=== PATIENT | male | born 1940 | race Caucasian/White ===

== ENCOUNTER 2023-11-12 05:10 | Inpatient (IN) | payer MEDICARE ==
[2023-11-12 06:06] LABS: #Basophils 0.04 10x3/uL (0.0-0.2); #Eosinphils Less than 0.03 10x3/uL (0.0-0.7); %Basophils 0.3 % (0.0-1.0); %Eosinophils 0.2 % (0.0-10.0); %Monocytes 11.1 % (0.0-10.0); %Neutrophils 80.7 % (42.0-75.0); Hematocrit 29.4 % (42.0-52.0); Hemoglobin 9.9 g/dL (14.0-18.0); Mean Corpuscular HGB CONC 33.7 g/dL (32.0-36.0); Mean Corpuscular Hemoglobin 31.5 pg (27.0-31.0); Mean Corpuscular Volume 93.6 fL (78.0-98.0); Mean Platelet Volume 10.9 fL (7.4-10.4); Platelet Count 149 10x3/uL (130-400); RBC Distribution Width 14.2 % (11.5-14.5); Red Blood Cell (RBC) Count 3.14 mill/uL (4.70-6.10)
[2023-11-12 06:12] LABS: ALT (SGPT) 13 U/L (8-55); AST (SGOT) 14 U/L (5-34); Albumin 2.9 g/dL (3.4-4.8); Alkaline Phosphatase 57 U/L (40-110); Anion Gap 11 mmol/L (10-20); BUN (Urea Nitrogen) 34 mg/dL (8.4-25.7); Bilirubin, Total 0.4 mg/dL (0.2-1.2); Calc. Creatinine Clearance 0 mL/min (70-130); Calcium 8.2 mg/dL (7.8-10.44); Carbon Dioxide 21 mmol/L (23-31); Chloride 112 mmol/L (98-107); Estimated GFR 87; Globulin 2.1 g/dL (2.4-3.5); Glucose 116 mg/dL (83-110); Potassium 4.2 mmol/L (3.5-5.1)
[2023-11-12 06:20] LABS: INR-International Normal Ratio 1.3; Prothrombin Time 15.9 sec (12.0-14.7)
[2023-11-12 06:21] LABS: PTT 24.2 sec (22.9-36.1)
[2023-11-12 06:24] LABS: Sodium 140 mmol/L (136-145)
[2023-11-12] MEDS ORDERED: Pantoprazole 40 MG VIAL ONE (06:34)
[2023-11-12] MEDS ORDERED: HYDROcodone/Acetaminophen 5/325 mg Tablet PO PRN (07:28)
[2023-11-12] MEDS ORDERED: Loperamide HCl 2 MG CAP PO PRN (07:28)
[2023-11-12] MEDS ORDERED: Pantoprazole 80 MG, Admixture Fee 1 EACH in Sodium Chloride 0.9% 100 ML IVPB SCH (08:00)
[2023-11-12 08:43] LABS: Lactic Acid 1.1 mmol/L (0.5-2.2)
[2023-11-12 08:47] LABS: INR-International Normal Ratio 1.4; Prothrombin Time 16.8 sec (12.0-14.7)
[2023-11-12] MEDS: Sodium Chloride 0.9% 1,000 ML IV SCH (09:43)
[2023-11-12] MEDS: Pantoprazole 80 MG, Admixture Fee 1 EACH in Sodium Chloride 0.9% 100 ML IVPB SCH (09:43)
[2023-11-12 10:07] VITALS: BMI 36.4
[2023-11-12 14:27] LABS: Hemoglobin 9.3 g/dL (14.0-18.0)
[2023-11-12] MEDS ORDERED: Iopamidol-370 76% 500 ML MDV (1 ML CHARGE) ONE (15:14)
[2023-11-12 15:58] LABS: Bacteria/HPF None Seen HPF (None Seen); Bilirubin Negative (Negative); Blood, Urine Negative (Negative); CAUTI Indications for Culture Fever or rigors; Clarity Clear (Clear); Glucose, Urine (Dipstick) Normal (Negative); Ketone, Urine Negative (Negative); Leukocyte Negative Leu/uL (Negative); Nitrite Negative (Negative); Protein, Urine (Dipstick) Negative (Neg-Trace); RBC/HPF 0-3 HPF (0-3); Specific Gravity, Urine 1.029 (1.002-1.036); Squamous Epithelial 0-3 HPF (0-3); Urobilinogen Normal mg/dL (Less than 2); WBC/HPF 0-3 HPF (0-3); pH, Urine 5.5 (5.0-9.0)
[2023-11-12 16:00] LABS: Urine Culture Reflex No No
[2023-11-12] MEDS: Atorvastatin Calcium 10 MG TAB PO SCH (21:14)
[2023-11-12 22:17] LABS: Hemoglobin 8.6 g/dL (14.0-18.0)
[2023-11-13 04:35] LABS: #Basophils 0.04 10x3/uL (0.0-0.2); %Basophils 0.4 % (0.0-1.0); %Eosinophils 2.3 % (0.0-10.0); %Lymphocytes 15.4 % (21.0-51.0); %Monocytes 11.4 % (0.0-10.0); %Neutrophils 69.5 % (42.0-75.0); Hematocrit 25.7 % (42.0-52.0); Hemoglobin 8.6 g/dL (14.0-18.0); Mean Corpuscular HGB CONC 33.5 g/dL (32.0-36.0); Mean Corpuscular Hemoglobin 32.1 pg (27.0-31.0); Mean Corpuscular Volume 95.9 fL (78.0-98.0); Mean Platelet Volume 10.3 fL (7.4-10.4); Platelet Count 134 10x3/uL (130-400); RBC Distribution Width 14.6 % (11.5-14.5); Red Blood Cell (RBC) Count 2.68 mill/uL (4.70-6.10)
[2023-11-13 04:52] LABS: Anion Gap 11 mmol/L (10-20); BUN (Urea Nitrogen) 23 mg/dL (8.4-25.7); Calc. Creatinine Clearance 133 mL/min (70-130); Calcium 7.8 mg/dL (7.8-10.44); Carbon Dioxide 21 mmol/L (23-31); Chloride 113 mmol/L (98-107); Estimated GFR 90; Glucose 108 mg/dL (83-110); Sodium 141 mmol/L (136-145)
[2023-11-13] MEDS: CO Q-10 CAPSULE 100 MG PO SCH (09:24)
[2023-11-13] MEDS ORDERED: Lidocaine 2% PF 5 ML VIAL ONE ×2 (11:04→12:19)
[2023-11-13] MEDS ORDERED: PROPOFOL 20 ML ONE ×2 (11:04→12:19)
[2023-11-13] MEDS ORDERED: fentaNYL 50 mcg/mL 1 mL Vial ONE (12:19)
[2023-11-13 14:57] LABS: Iron 78 ug/dL (65-175); Iron Binding Capacity, Total 233 mcg/dL (261-462)
[2023-11-13] MEDS: Pantoprazole 40 MG VIAL IVP SCH (21:45)
[2023-11-13 23:03] VITALS: TEMP 97.8
[2023-11-14 04:35] LABS: Actual Bicarbonate (HCO3v) 24.2 mEq/L (22-28); Base Excess -1.4 mEq/L (-2.0 to +3.0); Calcium, Ionized (venous) 1.13 mmol/L (1.16-1.32); Chloride (VBG) 107 mmol/L (98-106); Hematocrit-VBG 25 % (42.0-52.0); Hemoglobin (Hb) 8.5 g/dL (12.6-17.4); Potassium (VBG) 3.64 mmol/L (3.70-5.30); Sodium 131 mmol/L (133-146); pH (venous) 7.353 (7.32-7.43)
[2023-11-14 04:37] LABS: #Basophils 0.03 10x3/uL (0.0-0.2); %Basophils 0.3 % (0.0-1.0); %Eosinophils 2.5 % (0.0-10.0); %Lymphocytes 15.2 % (21.0-51.0); %Monocytes 10.9 % (0.0-10.0); %Neutrophils 70.4 % (42.0-75.0); Hematocrit 22.9 % (42.0-52.0); Hemoglobin 7.6 g/dL (14.0-18.0); Mean Corpuscular HGB CONC 33.2 g/dL (32.0-36.0); Mean Corpuscular Hemoglobin 32.1 pg (27.0-31.0); Mean Corpuscular Volume 96.6 fL (78.0-98.0); Mean Platelet Volume 10.2 fL (7.4-10.4); Platelet Count 130 10x3/uL (130-400); RBC Distribution Width 14.6 % (11.5-14.5); Red Blood Cell (RBC) Count 2.37 mill/uL (4.70-6.10)
[2023-11-14 11:44] VITALS: BP 141/67
== END 2023-11-14 14:25 | disposition home or self-care (01) | DRG 378 ==
LOC: ERS 05:10 → 2NO 09:03
PROVIDERS: ADMIT Hospitalist; ATTEND Internal Medicine
PROC: 0DB78ZX Excision of Stomach, Pylorus, Via Natural or Artificial Opening Endoscopic, Diagnostic (ICD-10-PCS; principal; 2023-11-13)
PROC: 0W3P8ZZ Control Bleeding in Gastrointestinal Tract, Via Natural or Artificial Opening Endoscopic (ICD-10-PCS; 2023-11-13)
DX: K26.4 Chronic or unspecified duodenal ulcer with hemorrhage (principal); D62 Acute posthemorrhagic anemia; I10 Essential (primary) hypertension; R55 Syncope and collapse; E78.5 Hyperlipidemia, unspecified; M19.90 Unspecified osteoarthritis, unspecified site; I48.0 Paroxysmal atrial fibrillation; Z79.899 Other long term (current) drug therapy; Z79.01 Long term (current) use of anticoagulants; Z87.891 Personal history of nicotine dependence; Z79.52 Long term (current) use of systemic steroids; Z79.1 Long term (current) use of non-steroidal anti-inflammatories (NSAID)
CPT/HCPCS: 36415; 70450; 71045; 74177; 76999; 80048; 80053; 81001; 82274; 82728; 82805; 83540; 83550; 83605; 85025; 85610; 85730; 86850; 86900; 86901; 88305; 88342; 93005; 94760; C9113; J2001; J2704; J3010; J3490; J7050; Q9967

== ENCOUNTER 2025-01-13 08:24 | Day surgery (SDC) | payer MEDICARE ==
[2025-01-12 10:52] VITALS: BMI 35.2
[2025-01-13] MEDS ORDERED: PROPOFOL 20 ML ONE (10:25)
[2025-01-13] MEDS ORDERED: fentaNYL PF 100 MCG/2 ML SYRINGE ONE (11:43)
[2025-01-13] MEDS ORDERED: Bupivacaine 0.25% HCL 30 ML VIAL ONE (11:47)
[2025-01-13] MEDS ORDERED: CEFAZOLIN 2 GM VIAL ONE (12:01)
[2025-01-13] MEDS ORDERED: Hydrocortisone Sod Succ/PF 100 mg/2 ml Vial ONE (12:19)
[2025-01-13] MEDS ORDERED: Rocuronium Bromide 10 MG/ML (10ML VIAL) ONE (12:33)
[2025-01-13] MEDS ORDERED: Lidocaine 1% PF 5 ML VIAL ONE (12:34)
[2025-01-13] MEDS ORDERED: Ondansetron PF 4 MG/2 ML Vial ONE (12:49)
[2025-01-13] MEDS ORDERED: SUGAMMADEX SODIUM 200 MG/2 ML VIAL ONE (12:50)
[2025-01-13] MEDS ORDERED: Ketorolac Tromethamine 30 MG (1 mL) VIAL ONE (13:38)
[2025-01-13] MEDS ORDERED: HYDROcodone/Acetaminophen 5/325 mg Tablet ONE (14:38)
[2025-01-13] MEDS ORDERED: Ondansetron PF 4 MG/2 ML Vial IVP PRN (14:45)
[2025-01-13] MEDS ORDERED: HYDROcodone/Acetaminophen 5/325 mg Tablet PO PRN ×2 (14:45)
[2025-01-13] MEDS ORDERED: Droperidol 5 MG/2 ML VIAL SLOW IVP PRN (14:47)
== END 2025-01-13 15:10 | disposition home or self-care (01) ==
LOC: SDC 08:24
PROVIDERS: ATTEND Surgery
PROC: 0FT44ZZ Resection of Gallbladder, Percutaneous Endoscopic Approach (ICD-10-PCS; principal; 2025-01-13)
DX: K80.10 Calculus of gallbladder with chronic cholecystitis without obstruction (principal); I10 Essential (primary) hypertension; E78.00 Pure hypercholesterolemia, unspecified; I48.91 Unspecified atrial fibrillation; Z79.01 Long term (current) use of anticoagulants; Z79.899 Other long term (current) drug therapy
CPT/HCPCS: 47562; C1889; J0665; J1720; J1885; J2405; J2704; J3010; S2900; 88304; J0169